=== PATIENT | female | born 1990 | race Caucasian/White ===

== ENCOUNTER 2021-05-10 17:08 | Emergency (ER) | payer MEDICAID ==
[~2021-05-10] VITALS: Ht 154.9 cm; Wt 74.8 kg
--- NOTE | 2021-05-10 17:56 | NUR ---
Pt triaged and placed in waiting room.
[2021-05-10 17:57] VITALS: BP_SYST 131
--- NOTE | 2021-05-10 21:10 | NUR ---
UNABLE TO FIND PT IN WAITING ROOM.
--- NOTE | 2021-05-10 21:30 | NUR ---
PT NOT IN WAITING ROOM, LEFT WITHOUT BEING SEEN
== END 2021-05-10 21:30 | disposition left against medical advice (07) ==
LOC: SED 17:08
DX: R21 Rash and other nonspecific skin eruption (principal); Z53.21 Procedure and treatment not carried out due to patient leaving prior to being seen by health care provider

== ENCOUNTER 2022-07-06 00:14 | Emergency (ER) | payer MEDICAID ==
[~2022-07-06] VITALS: Ht 154.9 cm; Wt 72.6 kg
[2022-07-06 00:50] VITALS: BP_SYST 116
[2022-07-06] MEDS ORDERED: NEOM10SO7 EACH EAR (01:06)
[2022-07-06] MEDS ORDERED: IBUP-1971 PO (01:06)
== END 2022-07-06 01:12 | disposition home or self-care (01) ==
LOC: SED 00:14
DX: H60.92 Unspecified otitis externa, left ear (principal); Z79.899 Other long term (current) drug therapy
CPT/HCPCS: 99283